=== PATIENT | female | born 1960 | race Caucasian/White ===

== ENCOUNTER → 2017-08-21 08:30 | Outpatient (CLI) | payer OTHER, SELFPAY ==
--- NOTE | 2017-08-21 08:30 | DT_ITS ---
This patient was seen during an EMR downtime August 21, 2017 - August 28, 2017. This patient may have a combination of paper and electronic documentation or all paper documentation. All documentation is viewable within the e-chart portion of [email or web address] for each patient visit.
--- NOTE | 2017-08-21 08:40 | RAD_ITS ---
STUDY: AIR-CONTRAST ESOPHAGRAM STUDY REASON FOR EXAM: Female, 56 years old. DYSPHAGIA,COUGH RADIATION DOSAGE (If Supplied By Facility): CTDIvol = ( ) mGy, DLP = ( ) mGycm FLUOROSCOPY TIME (if supplied): (0:27) minutes/seconds, 12 images. TECHNIQUE: Barium pill swallow with sips of water is performed at the beginning of the study without difficulty. Multiple barium swallows were performed under fluoroscopic monitoring. Multiple views of the esophagus, the upper stomach were performed. COMPARISON: None. FINDINGS: The esophagus appears normal in size and shape it shows unremarkable mucosal pattern. There is no evidence of hiatal hernia or abnormal mass. RAD/Esophagus Only IMPRESSION: Unremarkable study. Electronically Signed: Janis Gonzalez MD at 12:51 EDT Tel , Service support ,
== END ==
PROVIDERS: Family Provider Family Medicine; PCP Family Medicine; Visit Provider Family Medicine
DX: R13.10 Dysphagia, unspecified (principal)
CPT/HCPCS: 74220

== ENCOUNTER → 2018-01-05 10:55 | Outpatient (CLI) | payer OTHER, SELFPAY ==
[2018-01-05 11:28] LABS: Pathologist Comment/Body Fluid May follow
[2018-01-05 11:44] LABS: Body Fluid Mononuclear WBC # 0.387 10^3/uL; Body Fluid Mononuclear WBC % 38.5 %; Body Fluid Polynuclear WBC # 0.618 10^3/uL; Body Fluid Polynuclear WBC % 61.5 %; White Blood Count/Body Fluid 1.005 10^3/uL
[2018-01-05 12:03] LABS: Appearance/Body Fluid SL CLDY; Auto B Fluid Analyzer BKGD Ct COUNTS W/IN LIMITS (W/IN LIMITS); Color/Body Fluid YELLOW; Source- Body Fluid OTHER; Source- Body Fluid SYNOVIAL
[2018-01-05 12:35] LABS: Lymphocytes 23 %; Monocytes 10 %; Neutrophil (Segs) 64 %; Other Cell Type/BF 3 %
[2018-01-05 12:36] LABS: Body Fluid QC Type(s) BF4Q,BF5Q
[2018-01-08 11:48] LABS: Pathologist Review Reviewed
== END ==
PROVIDERS: Family Provider Family Medicine; PCP Family Medicine; Referring Provider Family Medicine; Visit Provider Family Medicine
DX: M25.462 Effusion, left knee (principal)
CPT/HCPCS: 87070; 87075; 87205; 89050; 89060

== ENCOUNTER → 2018-02-06 14:04 | Outpatient (CLI) | payer OTHER, SELFPAY ==
--- NOTE | 2018-02-06 17:18 | BI_ITS ---
MAMMOGRAPHY - BILATERAL SCREENING REASON FOR EXAM: Female, 57 years old. Routine annual screening examination. PERTINENT HISTORY: Non-contributory. TECHNIQUE: Digital bilateral breast lolly (3D mammographic acquisition) in the CC and MLO projections. 2-D mediolateral oblique (MLO) and craniocaudad (CC) views of both breasts were obtained. CAD: Full Field Digital Mammography with Computer Added Detection was performed. COMPARISON: Comparison is made with prior study dated August 14, 2014 and August 13, 2013. FINDINGS: Breast Composition: There are scattered areas of fibroglandular density. There are no dominant masses or suspicious calcifications. Stable small bilateral axillary lymph nodes. No other significant abnormalities are identified. There has been no significant change since the prior study. BI/SCREENING MAMM (CAD), BILAT IMPRESSION: Stable bilateral screening mammogram. Yearly follow-up mammogram recommended. (A) ASSESSMENT CATEGORY: BIRADS Category 2: Benign. A letter regarding these results will be sent to the patient by the facility within 30 days. Approximately 10% of breast cancers are not detected by mammography. A normal mammogram should not delay biopsy of a clinically suspicious abnormality. [id number] Electronically Signed: Danilo Brooke MD at 10:18 EST Tel [phone], Service support ,
--- OUTSIDE RECORDS SUMMARY | 2018-07-23 18:22 | XMS RPT_ITS | CCD ---
:1960 External Reference #:[id number] Author Organization [employer] Care Team Providers Name Role Phone Unavailable Unavailable Unavailable Problems Category Problem Name Status Date Location Residual codes; Other specified Active 05-11-2018 - [facility] unclassified health status [place] ([id number]) Results Result Name Value Range Unit Interpretation Flag Date Location progress on 2018-05-11 Protein mass conc HNO ID: [id number] Normal 05-11-2018 [facility] Author: Raúl Rodriguez (Rt) ([id number]) Service: (none) Author Type: Uncrater Type: Progress Notes Filed: 05/11/2018 2:05 PM Note Text: Radiology Service Progress Note PATIENT NAME: Evette Mclean DATE OF SERVICE: May 11, 2018 TIME: 2:04 PM PATIENT IDENTITY VERIFICATION COMPLETED USING TWO (2) METHODS: Patient confirmed name verbally and Date of . PATIENT GENDER DATA: Female. status: : No status: NO. PATIENT RELEVANT IMPLANT DATA REVIEWED: Yes RADIOLOGY DEPARTMENT: MR; Exam(s) Completed: Spine: Lumbar spine PERIPHERAL IV DATA: Not applicable SIGNED BY: RT Jennifer May 11, 2018 2:04 PM mri lumbar spine wo ivcon on 2018-05-11 MRI LUMBAR * * *Final Report* * * Normal 05-11-2018 [facility] SPINE WO IVCON DATE OF EXAM: May 11 2018 2:23PM [place] ([id number]) WRM [id number] - MRI LUMBAR SPINE WO IVCON / PROCEDURE REASON: lumbar with out * * * * Physician Interpretation * * * * EXAMINATION: MRI LUMBAR SPINE WO IVCON CLINICAL HISTORY: Low back pain radiating into right lower extremity. TECHNIQUE: Routine lumbosacral spine MR protocol without gadolinium. MQ: [id number] COMPARISON: None. RESULT: Counting reference: Lumbosacral junction. For the purposes of this report, L4-5 is considered the level of the iliac crest and assume there are 5 lumbar-type vertebrae. Anatomic variant: None. Alignment: Slight lumbar levocurvature centered at L4. Mild intervertebral disc space narrowing at L1-2, L2-3 and L3-4. Bone marrow signal/fracture: No evidence of pathologic marrow infiltration. No evidence of prior fracture. Conus: The conus terminates at L1 and is within normal limits of signal intensity and morphology. Normal course and caliber of the descending cauda equina nerve roots. Paraspinal soft tissues: Paraspinal soft tissues are within normal limits. T11-T12: Canal and foramina are patent. T12-L1: Diffuse disc bulging without cord contact. Patent foramina. L1-L2: Diffuse disc bulging with superimposed tiny left paracentral disc protrusion; patent canal and foramina. L2-L3: Annular bulging, mild facet arthropathy and edematous hypertrophy without significant canal or foraminal stenosis. L3-L4: Diffuse disc bulging and mild facet and ligamentous hypertrophy without significant canal or foraminal stenosis. L4-L5: Diffuse disc bulging and mild facet and ligamentous hypertrophy without significant canal or foraminal stenosis. L5-S1: Canal and foramina are patent Sacrum and iliac wings: The visualized sacrum and iliac wings are within normal limits. IMPRESSION: Minimal lumbar spondylosis without significant canal or foraminal stenosis. Anatomic Thoracic/Lumbar Variant: None. L4-5 is considered the level of the iliac crest and assume there are 5 lumbar-type vertebrae. [facility] Services Assistant: [facility] Transcribe Date/Time: May 11 2018 2:48P Dictated by : GA ABBASI MD This examination was interpreted and the report reviewed and electronically signed by: GA ABBASI MD on May 11 2018 2:53PM EST [id number] Encounters Date Type Reason Provider Location 07-02-2018 Patient encounter [facility] Facility:[facility] procedure [facility] 07-02-2018 Patient encounter Facility:[id number] procedure 05-11-2018 - Patient encounter [facility] 05-28-2018 procedure [place] ([id number]) Payers Payer Name Policy Number Location [facility] ([id number]) [facility] [id number] [facility] ([id number]) [id number] [facility] (33168) [id number] [facility] ([id number]) The following information is from the original human readable content ENCOUNTER GUARANTOR PAYER SUBSCRIBER SOURCE 2018 EVETTE GARCIA: Primary EVETTE GANNB: [place] [id number]: Insurance:[employer] [id number] () [place]: [id number] Date:Plan Name:Health ENCOUNTER GUARANTOR PAYER SUBSCRIBER SOURCE 2018 EVETTE GANNB: Primary EVETTE GANNB: [facility] [id number] Insurance:SUPERIOR [id number] [facility]el[facility]: System Repository Number: Effective () Date:2018 ()Tel: [id number] () Name:[id number] Summary Purpose DATE CREATED AUTHOR AUTHOR'S ORGANIZATION 05/28/2018 [facility] DATE CREATED AUTHOR AUTHOR'S ORGANIZATION 07/04/2018 [facility] DATE CREATED AUTHOR AUTHOR'S ORGANIZATION 07/05/2018 [facility] Family History No Family History Records Found Advance Directives No Advanced Directives Records Found Additional Source Comments FOR RECORDS PERTAINING TO PATIENTS WHO ARE OR HAVE BEEN ENROLLED IN A CHEMICAL DEPENDENCY/SUBSTANCE ABUSE PROGRAM, SOME INFORMATION MAY BE OMITTED. This clinical summary was aggregated from multiple sources. Caution should be exercised in using it in the provision of clinical care. This summary normalizes information from multiple sources, and as a consequence, information in this document may materially changethe coding, format and clinical context of patient data. In addition, data may be omittedin some cases. CLINICAL DECISIONS SHOULD BE BASED ON THE PRIMARY CLINICAL RECORDS. [facility] provides no warranty or guarantee of the accuracy or completeness of information in this document. UNRECOGNIZED CONTENT PROVIDED BELOW FOR UNRECOGNIZED SECTION INFORMATION SOURCE DATE CREATED AUTHOR AUTHOR'S ORGANIZATION 07/05/2018 [facility] DATE CREATED AUTHOR AUTHOR'S ORGANIZATION 07/04/2018 [facility] DATE CREATED AUTHOR AUTHOR'S ORGANIZATION 05/28/2018 [facility]
== END ==
PROVIDERS: Family Provider Family Medicine; PCP Family Medicine; Visit Provider Obstetrics & Gynecology
DX: Z12.31 Encounter for screening mammogram for malignant neoplasm of breast (principal)
CPT/HCPCS: 77063; 77067

== ENCOUNTER → 2018-03-30 11:03 | Outpatient (CLI) | payer OTHER, SELFPAY ==
--- NOTE | 2018-03-30 11:07 | RAD_ITS ---
STUDY: X-RAY - RIGHT HIP, AP pelvis REASON FOR EXAM: Female, 57 years old. Low back pain radiating into the right leg TECHNIQUE: 2 views of the hip. AP pelvis. COMPARISON: None. FINDINGS: There are osteoarthritic changes of the femoral head with marginal osteophyte formation. There is cortical sclerosis with subcortical cyst formation of the acetabulum. There is mild articular joint space narrowing. There is also degenerative narrowing with subchondral sclerosis and cyst formation of the left hip. Pelvic ring is intact without evidence of lytic or sclerotic bone lesion. The sacroiliac joints and pubic symphysis are normal. RAD/HIP, UNI W/ Pelvis 2-3 Views IMPRESSION: 1. Right hip osteoarthrosis. No erosive features. 2. Left hip osteoarthrosis. Electronically Signed: Lars Hernandes MD at 15:51 EST , Service support ,
--- NOTE | 2018-03-30 11:07 | RAD_ITS ---
STUDY: X-RAY - LUMBAR SPINE REASON FOR EXAM: Female, 57 years old. Lower back pain radiating to the right leg TECHNIQUE: 5 view(s) of the lumbar spine were obtained. COMPARISON: 01/09/2014 FINDINGS: Normal lumbar lordosis. There is no substantial scoliosis. There is a normal alignment of the vertebrae. There is multilevel endplate spondylosis of the lumbar vertebrae. Loss of disc space at L1-L2 and L3-L4 similar since the prior study. Moderate facet arthropathy L4-L5 and L5-S1. There is no demonstrated fracture. There is no demonstrated spondylolysis of the pars interarticulares. The soft tissue structures are unremarkable. RAD/L/S Spine Min 4 Views IMPRESSION: 1. Similar degenerative disc disease and facet arthropathy. Electronically Signed: Lars Hernandes MD at 16:03 EST , Service support ,
== END ==
PROVIDERS: Family Provider Family Medicine; PCP Family Medicine; Referring Provider Family Medicine; Visit Provider Family Medicine
DX: M25.551 Pain in right hip (principal)
CPT/HCPCS: 72110; 73502

== ENCOUNTER → 2018-04-10 13:33 | Outpatient (CLI) | payer OTHER, SELFPAY ==
--- NOTE | 2018-04-10 13:38 | VDLE_ITS ---
Reason For Study: LEG PAIN RIGHT LEFT GSV is normal. CFV is compressible, spontaneous, phasic, CFV is compressible, spontaneous, phasic, competent, and demonstrates normal competent and demonstrates normal augmentation. augmentation. FV is compressible, spontaneous, phasic, competent and demonstrates normal augmentation. POP V is compressible, spontaneous, phasic, competent and demonstrates normal augmentation. T/P Trunk is compressible. PTV is compressible. RT PerV is compressible. Hypoechoic structure noted medial/posterior calf measuring 4.4 x 2.6 cm. Extending from popliteal space to mid calf. Non-vascular. Procedure Exam performed in department. A preliminary report was called and/or faxed to Dr. Garcia. Interpretation Summary Deep veins of the right lower extremity are patent and compressible segmentally. There is no evidence of right lower extremity deep vein thrombosis. Valvular competence appears intact within the proximal deep venous system on the right . The right greater saphenous vein appears patent and compressible segmentally. A non-vascular, hypoechoic structure is noted in the right postero-medial calf, measuring 4.4 cm x 2.6 cm, and extending from the right popliteal space to the mid-calf. This may represent a ruptured popliteal cyst, a hematoma, or a seroma. Clinical correlation is advised. Ordering Physician: Tomasz Garcia Referring Physician: Tomasz Garcia Performed By: Cami Pearson RVT
--- OUTSIDE RECORDS SUMMARY | 2018-06-12 18:13 | XMS RPT_ITS ---
:1960 Author Organization [facility] Care Team Providers Name Role Phone Tomasz Garcia Attending Unavailable Tomasz Garcia Referring Unavailable Tomasz Garcia Primary Care Unavailable Tomasz Garcia Attending Unavailable Tomasz Garcia Referring Unavailable Tomasz Garcia Primary Care Unavailable Ministerio Ozuna Attending Unavailable Tomasz Garcia Primary Care Unavailable Tomasz Garcia Attending Unavailable Tomasz Garcia Referring Unavailable Tomasz Garcia Primary Care Unavailable Ministerio Ozuna Attending Unavailable Tomasz Garcia Primary Care Unavailable Tomasz Garcia Attending Unavailable Tomasz Garcia Referring Unavailable Tomasz Garcia Primary Care Unavailable PROBLEMS PROBLEMS DATE TYPE CONDITION / CODE ATTENDING STATUS SOURCE 01/05/2018 Unknown M25.462 - Jose, Active [place] Effusion, left [facility] knee / Hospital M25.462(ICD-10) Repository 09/13/2017 Unknown R13.10 - Jose, Active [place] Dysphagia, [facility] unspecified / Hospital R13.10(ICD-10) Repository PROCEDURES PROCEDURES No Procedure Records FoundRESULTS RESULTS VENOUS DUPLEX LOWER Observed: 04/11/2018 Status: F Source: [place] EXTREMITY 6:50 PM [facility] REPOSITORY [facility] Cardiovascular Services [address] [place] [address] Venous Duplex US, Unilateral 04/10/18 1341 MR#: [id number] Acct: [id number] Name: EVETTE NO Rep #: [id number] : 1960 57 From: Patrice Oliva MD Attending Dr: Tomasz Garcia MD Status: REG CLI Ordering Dr: Shawn Garcia MD Date: 04/10/18 Location: [facility] Sex: F C Admitted: Reason For Study: LEG PAIN RIGHT LEFT GSV is normal. CFV is compressible, spontaneous, phasic, CFV is compressible, spontaneous, phasic, competent, and demonstrates normal competent and demonstrates normal augmentation. augmentation. FV is compressible, spontaneous, phasic, competent and demonstrates normal augmentation. POP V is compressible, spontaneous, phasic, competent and demonstrates normal augmentation. T/P Trunk is compressible. PTV is compressible. RT PerV is compressible. Hypoechoic structure noted medial/posterior calf measuring 4.4 x 2.6 cm. Extending from popliteal space to mid calf. Non-vascular. Procedure Exam performed in department. A preliminary report was called and/or faxed to Dr. Garcia. Interpretation Summary Deep veins of the right lower extremity are patent and compressible segmentally. There is no evidence of right lower extremity deep vein thrombosis. Valvular competence appears intact within the proximal deep venous system on the right . The right greater saphenous vein appears patent and compressible segmentally. A non-vascular, hypoechoic structure is noted in the right postero-medial calf, measuring 4.4 cm x 2.6 cm, and extending from the right popliteal space to the mid-calf. This may represent a ruptured popliteal cyst, a hematoma, or a seroma. Clinical correlation is advised. Ordering Physician: Tomasz Garcia Referring Physician: Tomasz Garcia Performed By: Cami Pearson RVT 04/11/189 Date Patrice Oliva MD CC: Tomasz Garcia MD Date Dictated: 04/10/18 1341 Date Transcribed: 04/11/181848 Window Sash Installer: Signed HIP, UNI W/ PELVIS Observed: 03/30/2018 Status: F Source: [place] 2-3 VIEWS 11:08 AM [facility] REPOSITORY [facility] Imaging Services [address] [place] [id number] HIP, UNI W/ Pelvis 2-3 Views MR#: [id number] Acct: [id number] Name: EVETTE NO Rep #: [id number] : 1960 F 57 From: Lars Hernandes MD PCP: Tomasz Garcia MD Status: REG CLI Study: HIP, UNI W/ Pelvis 2-3 Views Date of Exam: 03/30/18 Exam# [id number] Ordering Dr: Shawn Garcia MD STUDY: X-RAY - RIGHT HIP, AP pelvis REASON FOR EXAM: Female, 57 years old. Low back pain radiating into the right leg TECHNIQUE: 2 views of the hip. AP pelvis. COMPARISON: None. FINDINGS: There are osteoarthritic changes of the femoral head with marginal osteophyte formation. There is cortical sclerosis with subcortical cyst formation of the acetabulum. There is mild articular joint space narrowing. There is also degenerative narrowing with subchondral sclerosis and cyst formation of the left hip. Pelvic ring is intact without evidence of lytic or sclerotic bone lesion. The sacroiliac joints and pubic symphysis are normal. RAD/HIP, UNI W/ Pelvis 2-3 Views IMPRESSION: 1. Right hip osteoarthrosis. No erosive features. 2. Left hip osteoarthrosis. Electronically Signed: Lars Hernandes MD at 15:51 EST , Service support , CC: Tomasz Garcia MD Window Sash Installer: Signed L/S SPINE MIN 4 Observed: 03/30/2018 Status: F Source: [place] VIEWS 11:08 AM [facility] REPOSITORY [facility] Imaging Services [address] [place] [address] L/S Spine Min 4 Views MR#: [id number] Acct: [id number] Name: EVETTE NO Rep #: [id number] : 1960 F 57 From: Lars Hernandes MD PCP: Tomasz Garcia MD Status: REG CLI Study: L/S Spine Min 4 Views Date of Exam: 03/30/18 Exam# [id number] Ordering Dr: Shawn Garcia MD STUDY: X-RAY - LUMBAR SPINE REASON FOR EXAM: Female, 57 years old. Lower back pain radiating to the right leg TECHNIQUE: 5 view(s) of the lumbar spine were obtained. COMPARISON: 01/09/2014 FINDINGS: Normal lumbar lordosis. There is no substantial scoliosis. There is a normal alignment of the vertebrae. There is multilevel endplate spondylosis of the lumbar vertebrae. Loss of disc space at L1-L2 and L3-L4 similar since the prior study. Moderate facet arthropathy L4-L5 and L5-S1. There is no demonstrated fracture. There is no demonstrated spondylolysis of the pars interarticulares. The soft tissue structures are unremarkable. RAD/L/S Spine Min 4 Views IMPRESSION: 1. Similar degenerative disc disease and facet arthropathy. Electronically Signed: Lars Hernandes MD at 16:03 EST , Service support , CC: Tomasz Garcia MD Window Sash Installer: Signed SCREENING MAMM (CAD), Observed: 02/06/2018 Status: F Source: [place] BIL 5:30 PM [facility] REPOSITORY [facility] Imaging Services [address] [place] [address] SCREENING MAMM (CAD), BILAT MR#: [id number] Acct: [id number] Name: EVETTE NO Rep #: [id number] : 1960 F 57 From: Danilo Brooke MD PCP: Tomasz Garcia MD Status: PRE CLI Study: SCREENING MAMM (CAD), BILAT Date of Exam: 02/06/18 Exam# [id number] Ordering Dr: Ministerio Ozuna MD MAMMOGRAPHY - BILATERAL SCREENING REASON FOR EXAM: Female, 57 years old. Routine annual screening examination. PERTINENT HISTORY: Non-contributory. TECHNIQUE: Digital bilateral breast lolly (3D mammographic acquisition) in the CC and MLO projections. 2-D mediolateral oblique (MLO) and craniocaudad (CC) views of both breasts were obtained. CAD: Full Field Digital Mammography with Computer Added Detection was performed. COMPARISON: Comparison is made with prior study dated August 14, 2014 and August 13, 2013. FINDINGS: Breast Composition: There are scattered areas of fibroglandular density. There are no dominant masses or suspicious calcifications. Stable small bilateral axillary lymph nodes. No other significant abnormalities are identified. There has been no significant change since the prior study. BI/SCREENING MAMM (CAD), BILAT IMPRESSION: Stable bilateral screening mammogram. Yearly follow-up mammogram recommended. (A) ASSESSMENT CATEGORY: BIRADS Category 2: Benign. A letter regarding these results will be sent to the patient by the facility within 30 days. Approximately 10% of breast cancers are not detected by mammography. A normal mammogram should not delay biopsy of a clinically suspicious abnormality. [id number] Electronically Signed: Danilo Brooke MD at 10:18 EST Tel [phone], Service support , CC: Tomasz Garcia MD; Ministerio Ozuna MD Window Sash Installer: Signed BODY FLUID CELL Collected: 01/04/2018 Status: F Source: [place] COUNT+DIFF 5:15 PM [facility] REPOSITORY Order Comment: Specimen Source: SYNOVIAL FLUID TYPE CODE TESTS RESULT OUT OF RANGE REFERENCE UNITS LAB L200.3380 0.000-0.000 10 3/ul High BFTC# 1.020 Result Comment: This is the Total Number of Nucleated Cell Types in the Body Fluid. LAB L200.3400 10 6/ul Normal RBC/BF 0.70672 LAB L200.3500 10 3/uL Normal WBC/BF 1.005 LAB L200.3510 % Normal BF PMN WBC% 61.5 LAB L200.3515 % Normal BF MN WBC% 38.5 LAB L200.3520 10 3/uL Normal BF MN WBC# 0.387 LAB L200.3525 10 3/uL Normal BF PMN WBC# 0.618 LAB L200.4400 Normal PATH COMM/BF May follow LAB L200.3100 Normal SOURCE/BF OTHER Result Comment: SYNOVIAL FLUID. LAB L200.3200 Normal COLOR/BF YELLOW LAB L200.3300 Normal SL APPEAR/BF CLDY LAB L200.3600 % Normal PMN 64 LAB L200.3700 % Normal LYMPH 23 LAB L200.3800 % Normal MONO/BF 10 LAB L200.4100 % Normal OTHER 3 CELL/BF LAB L200.4420 Normal BFM 2ND SPEC SEE COMMENT Performed By: #### L200.0200, L200.4175 #### [facility] [address] [place], [address] CRYSTALS, BODY FLUID Collected: 01/04/2018 Status: C Source: [place] 5:15 PM [facility] REPOSITORY Order Comment: Specimen Source: SYNOVIAL FLUID TYPE CODE TESTS RESULT OUT OF RANGE REFERENCE UNITS LAB L200.4200 Normal SEE PATH REV CRYSTALS/BF LAB L200.4225 Normal SYNOVIAL SOURCE/BF LAB L200.6020 Normal PATH Reviewed REV Result Comment: Negative for malignant cells and crystals. Len Hernandez M.D. 01/08/18 AMENDED REPORT 01/08/18 1148 PATH REV previously reported as: Will follow Performed By: #### L200.0200, L200.4175 #### [facility] [address] [place], [place], [address] Observed: 01/04/2018 Status: F Source: [place] CULTURE, BODY FLUID 5:15 PM [facility] REPOSITORY List Antibiotics Last 48 Hours? UNK List Antibiotics to be Started? UNK Gram Stain Centrifuged Specimen? Culture performed on centrifuged specimen Gram Stain Rare White Blood Cells No organisms seen Body Fluid Cult NO GROWTH IN 14 DAYS Cult, Anaerobic No growth in 5 days. Performed By: #### M100.1300 #### [facility] [address] [place], [address] DOWNTIME REPORT Observed: 09/07/2017 Status: F Source: [place] 12:16 PM [facility] REPOSITORY [facility] Medical Records Department [address] [place] [address] Downtime Report MR#: [id number] Acct: [id number] Name: EVETTE NO Rep #: [id number] : 1960 56 From: Patrick Ho PCP: Tomasz Garcia MD Status: REG CLI This patient was seen during an EMR downtime August 21, 2017 - August 28, 2017. This patient may have a combination of paper and electronic documentation or all paper documentation. All documentation is viewable within the e-chart portion of [employer] for each patient visit. ESOPHAGUS ONLY Observed: 08/24/2017 Status: F Source: [place] 1:23 PM [facility] REPOSITORY [facility] Imaging Services [address] [place] [address] Esophagus Only MR#: [id number] Acct: [id number] Name: EVETTE NO Rep #: [id number] : 1960 F 56 From: Janis Gonzalez MD PCP: Tomasz Garcia MD Status: REG CLI Study: Esophagus Only Date of Exam: 08/21/17 Exam# [id number] Ordering Dr: Shawn Garcia MD STUDY: AIR-CONTRAST ESOPHAGRAM STUDY REASON FOR EXAM: Female, 56 years old. DYSPHAGIA,COUGH RADIATION DOSAGE (If Supplied By Facility): CTDIvol = ( ) mGy, DLP = ( ) mGycm FLUOROSCOPY TIME (if supplied): (0:27) minutes/seconds, 12 images. TECHNIQUE: Barium pill swallow with sips of water is performed at the beginning of the study without difficulty. Multiple barium swallows were performed under fluoroscopic monitoring. Multiple views of the esophagus, the upper stomach were performed. COMPARISON: None. FINDINGS: The esophagus appears normal in size and shape it shows unremarkable mucosal pattern. There is no evidence of hiatal hernia or abnormal mass. RAD/Esophagus Only IMPRESSION: Unremarkable study. Electronically Signed: Janis Gonzalez MD at 12:51 EDT Tel , Service support , CC: Tomasz Garcia MD Window Sash Installer: Signed ALLERGIES ALLERGIES No Allergies Records FoundENCOUNTERS ENCOUNTERS ADMIT/DISCHARGE ACCOUNT ADMITTING ENCOUNTER LOCATION SOURCE NUMBER CLASS 04/10/2018 [id number] Ambulatory [place] 8 [facility] ing:[facility] Repository 03/30/2018 [id number] Ambulatory [place] 5 [facility] ing:MTRAD Repository 02/06/2018 [id number] Ambulatory [place] 6 [facility] ing:OPBI Repository 01/05/2018 [id number] Ambulatory [place] 9 [facility] ing:LABSPEC Repository 08/21/2017 [id number] Ambulatory [place] 2 [facility] ing:RAD Repository 05/15/2017 [id number] Ambulatory [place] 5 [facility] ing:BI Repository PAYERS PAYERS ENCOUNTER GUARANTOR PAYER SUBSCRIBER SOURCE 04/10/2018 EVETTE D Primary EVETTE D [place] [id number] [place] Insurance:[facility] BATDOB: [facility] [id number] [address]Tel: (330) Number: Repository [phone] () [id number] Date:6679-15-16[id number] [place] [address]GE: 04/10/2018 Secondary NOT GIVENUNK [place] Insurance:SELF PAY [facility] Number: Effective Repository Date:2018-04-10 03/30/2018 EVETTE D Primary EVETTE D [place] [id number] [place] [facility] [id number] [id number] [place] [id number]: (330) Number: Repository [phone] () [id number] Date:3690-44-13[address], [place] [address]JQ: 03/30/2018 Secondary NOT GIVENUNK [place] Insurance:SELF PAY [facility] Number: Effective Repository Date:2018-03-30 02/06/2018 Evette D Primary Evette D [place] [id number] [place] Insurance:[place] BatesDOB: [facility] [address]Szrnue [id number] [facility] [address]Ylr: (330) Number: Repository [phone] () [id number] Date:7450-40-95DG [address] [address]TA: 02/06/2018 Secondary NOT GIVENUNK [place] Insurance:SELF PAY [facility] Number: Effective Repository Date:2017-11-28 01/05/2018 Evette D Primary Evette D [place] [id number] [place] Insurance:[employer] [place] BatesDOB: [facility] [id number] [id number] [place] [address]36[address]Tel: (330) Number: Repository [phone] () [id number] Date:1297-14-16LLMARIA [place] [address]WP: 01/05/2018 Secondary NOT GIVENUNK [place] Insurance:SELF PAY [facility] Number: Effective Repository Date:2018-01-05 08/21/2017 Evette D Primary Evette D [place] [id number] [place] Insurance:UNITED [place] BatesDOB: [facility] [id number] Hospital [address]Bdv: (330) Number: Repository [phone] () [id number] Date:5405-74-02GW [address] [address]SK: 08/21/2017 Secondary NOT GIVENUNK [place] Insurance:SELF PAY [facility] Number: Effective Repository Date:2017-08-11 05/15/2017 Evette D Primary Evette D [place] [id number] [place] Insurance:UNITED HLTH BatesDOB: [facility] [id number] Hospital [address]Ttc: (330) Number: Repository [phone] () [id number] Date:0987-43-51[address], [place] [address]TR: 05/15/2017 Secondary NOT GIVENUNK [place] Insurance:SELF PAY [facility] Effective Repository Date:2017-04-19
== END ==
PROVIDERS: Family Provider Family Medicine; PCP Family Medicine; Referring Provider Family Medicine; Visit Provider Family Medicine
DX: M79.661 Pain in right lower leg (principal)
CPT/HCPCS: 93971

== ENCOUNTER → 2018-05-31 09:01 | Outpatient (CLI) | payer OTHER, SELFPAY ==
[2018-05-31 08:43] VITALS: BMI 35.6
--- NOTE | 2018-05-31 09:02 | RAD_ITS ---
STUDY: X-RAY - PELVIS AND RIGHT HIP REASON FOR EXAM: Chronic pain. TECHNIQUE: 2 views of the pelvis and hip. COMPARISON: Radiographs 03/30/2018 and 01/09/2014. FINDINGS: There is a focus of heterotopic ossification adjacent to the right greater trochanter, best identified on the frog-leg view and unchanged since the prior studies. Normal bilateral iliac wings, sacroiliac joints and visualized sacrum. Normal bilateral superior and inferior pubic rami. Normal pubic symphysis. Normal bilateral ischial tuberosities. Normal visualized femoral head. There is a bone island in the right femoral neck. Normal acetabulum. There is moderate joint space narrowing of the superior medial right hip. RAD/HIP, UNI W/ Pelvis 2-3 Views IMPRESSION: Right hip arthrosis. Heterotopic ossification adjacent to the right greater trochanter. Electronically Signed: Steven Ron MD at 14:39 EDT Tel , Service support ,
== END ==
PROVIDERS: Family Provider Family Medicine; PCP Family Medicine; Referring Provider Orthopaedic Surgery; Visit Provider Orthopaedic Surgery
DX: R52 Pain, unspecified (principal)
CPT/HCPCS: 73502

== ENCOUNTER → 2019-12-26 17:01 | Outpatient (CLI) | payer OTHER, SELFPAY ==
[2018-05-31 08:43] VITALS: BMI 35.6
[2019-12-26 17:43] LABS: Hematocrit 42.2 % (37-47); Hemoglobin 13.1 g/dL (12.0-15.0); Mean Corpuscular Hgb 28.6 pg (27.0-32.0); Mean Corpuscular Volume 92.1 fL (81-99); Mean Platelet Vol. 10.1 fl (6.2-12.0); Platelet Count 353 K/mm3 (150-450); Red Blood Count 4.58 M/mm3 (4.2-5.4); White Blood Count 7.8 K/mm3 (4.4-11.0)
[2019-12-26 18:58] LABS: ALB/GLOB Ratio 0.9 RATIO (0.9-2.4); AST(SGOT) 13 U/L (15-37); Alanine Aminotransfer ALT/SGPT 26 U/L (13-56); Albumin, Serum 3.6 g/dL (3.2-5.0); Alkaline Phosphatase 74 U/L (45-117); Anion Gap 6 (5-15); BUN 19 mg/dL (7-18); BUN/Creat Ratio 22.6 RATIO (10-20); Calcium,Total 9.1 mg/dL (8.5-10.1); Chloride 108 mmol/L (98-107); Creatinine, Serum 0.84 mg/dL (0.55-1.02); EST Glomerular Filtration Rate 74 mL/min (>60); Est Glom Filt Rate - Afr Amer 90 mL/min (>60); Globulin 3.8 g/dL (2.2-4.2); Glucose 83 mg/dL (74-106); Potassium 3.8 mmol/L (3.5-5.1); Protein, Total 7.4 g/dL (6.4-8.2); Sodium Level 142 mmol/L (136-145)
== END ==
PROVIDERS: Nurse Practitioner Family; PCP Family Medicine; Referring Provider Family Medicine; Visit Provider Family Medicine
DX: R11.2 Nausea with vomiting, unspecified (principal)
CPT/HCPCS: 36415; 80053; 85027

== ENCOUNTER → 2020-01-04 10:53 | Outpatient (CLI) | payer OTHER, SELFPAY ==
[2018-05-31 08:43] VITALS: BMI 35.6
--- NOTE | 2020-01-04 11:00 | US_ITS ---
STUDY: ABDOMINAL ULTRASOUND REASON FOR EXAM: Female, 59 years old. Right and mid abdominal pain TECHNIQUE: Transabdominal ultrasound was performed with real-time and static villagomez scale imaging. TECHNICAL QUALITY: Adequate. COMPARISON: None. FINDINGS: Liver: The liver measures 15.4 cm. There is normal echogenicity of the liver. The bile ducts are within normal limits. There is hepatic color flow. The direction of portal flow is hepatopetal. There is no demonstrated mass lesion. Portal vein measurement: Gallbladder: Normal distended gallbladder. The gallbladder wall measures 2.5 mm. There is a negative sonographic Fuentes''s sign. There is no pericholecystic fluid. There are no gallstones. Common Bile Duct (C.B.D.): The common bile duct measures 4.5 mm. Pancreas: Normal size of the head, body and tail of the pancreas. There is normal echogenicity of the pancreas. There is no demonstrated pancreatic mass or cyst. Spleen: Normal size of the spleen. The spleen measures 9.6 cm. Right Kidney: Normal size of the right kidney. The right kidney measures 9.9 x 4.6 x 4.0 cm. Normal renal cortex. The right cortex measures 1.5 cm. There is no demonstrated renal mass or cyst. There is no right hydronephrosis. Left Kidney: Normal size of the left kidney. The left kidney measures 9.9 x 5.5 x 5.2 cm. Normal renal cortex. The left cortex measures 1.5 cm. There is no demonstrated renal mass or cyst. There is no left hydronephrosis. Aorta: 1.9 cm proximally, 2.4 cm mid I.V.C.: The IVC is patent. There is no ascites. US/Abdomen Complete IMPRESSION: Normal abdominal ultrasound examination. Electronically Signed: Yue Cerrato, at 21:36 EDT Tel , Service support ,
== END ==
PROVIDERS: PCP Family Medicine; Referring Provider Nurse Practitioner Family; Visit Provider Nurse Practitioner Family
DX: R10.11 Right upper quadrant pain (principal)
CPT/HCPCS: 76700

== ENCOUNTER → 2020-01-14 08:06 | Outpatient (CLI) | payer OTHER, SELFPAY ==
[2018-05-31 08:43] VITALS: BMI 35.6
--- NOTE | 2020-01-14 08:09 | CT_ITS ---
STUDY: CT ABDOMEN AND PELVIS WITH CONTRAST REASON FOR EXAM: Female, 59 years old. RT SIDED ABD PAIN, N/V AFTER EATING, CONSTIPATION/DIARRHEA, SURG-RODRIGO/BSO, HERNIA REPAIR, PARTIAL COLECTOMY, APPY RADIATION DOSAGE (If Supplied By Facility): CTDIvol = ( 14.43 ) mGy, DLP = ( 1083.19 ) mGycm TECHNIQUE: Transaxial images were obtained from the dome of the diaphragm to the symphysis pubis with oral contrast. Oral and amp; IV Readi-CAT and amp; 100mL Isovue-300 was administered. Sagittal and coronal images were reconstructed. Individualized dose optimization techniques were used for this CT. COMPARISON: None. FINDINGS: The visualized lung bases are unremarkable. The visualized portions of the heart are within normal limits. Normal liver. The patient is status post cholecystectomy. Normal spleen. Normal pancreas. Normal bilateral adrenal glands. Normal right kidney. Normal left kidney. There is a small hiatal hernia. Normal small intestine. Normal colon. The patient is status post appendectomy. Normal abdominal aorta. Normal inferior vena cava. Normal retroperitoneum. Normal urinary bladder. There is absence of the uterus consistent with a prior hysterectomy. Normal abdominal wall. There are mild degenerative changes of the visualized lumbar spine. CT/Abdomen/Pelvis WITH Contrast IMPRESSION: Status post cholecystectomy. Electronically Signed: Danilo Brooke, at 15:17 EDT , Service support ,
== END ==
PROVIDERS: PCP Family Medicine; Referring Provider Nurse Practitioner Family; Visit Provider Nurse Practitioner Family
DX: R10.9 Unspecified abdominal pain (principal)
CPT/HCPCS: 74177; Q9967

== ENCOUNTER → 2020-12-16 12:14 | Outpatient (CLI) | payer OTHER, SELFPAY ==
[2020-12-16 15:18] LABS: Absolute Lymphocyte Count 1.51 X10^3/uL (0.83-4.51); Absolute Neutrophil Count 5.5 X10^3/uL (2.0-7.7); Basophil# 0.03 X10^3/uL; Basophil% 0.4 % (0-1); Eosinophil# 0.03 X10^3/uL; Eosinophils% 0.4 % (0-5); Hematocrit 44.7 % (37-47); Hemoglobin 14.1 g/dL (12.0-15.0); Lymphocyte # 1.51 X10^3/ul (0.83-4.51); Lymphocyte % 19.3 % (19-41); Mean Corp Hgb Conc 31.5 g/dL (32-36); Mean Corpuscular Hgb 28.9 pg (27.0-32.0); Mean Corpuscular Volume 91.6 fL (81-99); Mean Platelet Vol. 10.4 fl (6.2-12.0); Monocyte# 0.69 X10^3/uL; Monocyte% 8.8 % (0-10); NRBC Flagged by Analyzer 0 % (0-5); Neutrophil # 5.53 X10^3/uL (2.7-7.7); Neutrophil % 70.7 % (47-70); Platelet Count 395 K/mm3 (150-450); RBC Distribution Width CV 13.1 % (11.6-14.6); RBC Distribution Width SD 44.3 fl (35.1-43.9); Red Blood Count 4.88 M/mm3 (4.2-5.4); White Blood Count 7.8 K/mm3 (4.4-11.0)
[2020-12-16 15:58] LABS: ALB/GLOB Ratio 0.8 RATIO (0.9-2.4); AST(SGOT) 16 U/L (15-37); Alanine Aminotransfer ALT/SGPT 31 U/L (13-56); Albumin, Serum 3.4 g/dL (3.2-5.0); Alkaline Phosphatase 85 U/L (45-117); Anion Gap 6 (5-15); BUN 11 mg/dL (7-18); BUN/Creat Ratio 12.3 RATIO (10-20); Chloride 107 mmol/L (98-107); Cholesterol 169 mg/dL (200); EST Glomerular Filtration Rate 69 mL/min (>60); Est Glom Filt Rate - Afr Amer 83 mL/min (>60); Globulin 4.1 g/dL (2.2-4.2); Glucose 93 mg/dL (74-106); High Density Lipoprotein 48 mg/dL; Potassium 4.1 mmol/L (3.5-5.1); Protein, Total 7.5 g/dL (6.4-8.2); Sodium Level 141 mmol/L (136-145); Thyroid Stim Hormone (TSH) 1.43 uIU/mL (0.358-3.74); Triglycerides 106 mg/dL; Very Low Density Lipoprotein 21 mg/dL (5-40)
== END ==
PROVIDERS: PCP Family Medicine; Referring Provider Family Medicine; Visit Provider Family Medicine
DX: R63.4 Abnormal weight loss (principal); R07.9 Chest pain, unspecified
CPT/HCPCS: 36415; 80053; 80061; 84443; 85025

== ENCOUNTER → 2021-01-06 15:00 | Outpatient (CLI) | payer OTHER, SELFPAY ==
--- NOTE | 2021-01-06 15:06 | ECHOD_ITS ---
Reason For Study: CHEST PAIN Procedure This was a 2D Doppler, Color Flow transthoracic echocardiogram. Exam performed in department. Left Ventricle Normal LV size. Left ventricular systolic function is normal. The estimated ejection fraction is 60 %. Normal diastology for age. No regional wall motion abnormalities noted. Right Ventricle Normal RV size. Normal systolic function. Atria Normal left atrium. Normal right atrium. Mitral Valve Equivocal mitral valve prolapse. Trivial eccentric mitral valve insufficiency. Tricuspid Valve Normal tricuspid valve. Mild tricuspid valve insufficiency. Aortic Valve Normal aortic valve. Trisinus/trileaflet aortic valve. Pulmonic Valve Normal pulmonic valve. Great Vessels Normal aortic root. The pulmonary artery is normal size. Normal inferior vena cava. Pericardium/Pleural No pericardial effusion. MMode/2D Measurements & Calculations LVIDd: 4.8 cm IVSd: 0.68 cm Ao root diam: 3.6 cm LVIDs: 3.3 cm LVPWd: 0.84 cm RVDd: 3.3 cm FS: 31.5 % LAV(MOD-bp): 42.7 ml LVAd ap4: 26.8 cm2 LVAd ap2: 26.0 cm2 LAV(MOD-bp) Indexed: 24.6 ml/m2 LVLd ap4: 7.0 cm LVLd ap2: 7.1 cm LAV(MOD-sp2): 46.9 ml EDV(MOD-sp4): 86.4 ml EDV(MOD-sp2): 79.7 ml LAV(MOD-sp4): 38.6 ml EDV(sp4-el): 86.7 ml EDV(sp2-el): 81.3 ml LVAs ap4: 15.5 cm2 LVAs ap2: 15.6 cm2 LVLs ap4: 6.0 cm LVLs ap2: 6.0 cm ESV(MOD-sp4): 34.3 ml ESV(MOD-sp2): 32.7 ml ESV(sp4-el): 34.2 ml ESV(sp2-el): 34.5 ml EF(MOD-sp4): 60.3 % EF(MOD-sp2): 59.0 % EF(sp4-el): 60.5 % SV(MOD-sp4): 52.1 ml SV(MOD-sp2): 47.0 ml SV(sp4-el): 52.4 ml LA dimension(2D): 3.3 cm LA A4 area: 15.6 cm2 RA A4 area: 13.9 cm2 Doppler Measurements & Calculations MV E max saurav: 37.3 cm/sec Lat Peak E' Saurav: 10.3 cm/sec Med Peak E' Saurav: 7.4 cm/sec MV A max saurav: 54.2 cm/sec E/E' lat: 3.6 E/E' med: 5.1 MV E/A: 0.69 Ao V2 max: 115.3 cm/sec LV V1 max: 109.2 cm/sec TR max saurav: 230.8 cm/sec Ao max P.3 mmHg LV V1 max P.8 mmHg TR max P.3 mmHg ECHO/Echo Complete Interpretation Summary Normal LV size. Left ventricular systolic function is normal. The estimated ejection fraction is 60 %. Equivocal mitral valve prolapse. Trivial eccentric mitral valve insufficiency. Mild tricuspid valve insufficiency. Ordering Physician: Audrey Pearl Referring Physician: KAREN PINEDA Performed By: Leanna Nobles, LOVECS, RVT
== END ==
PROVIDERS: PCP Family Medicine; Referring Provider Family Medicine; Visit Provider Family Medicine
DX: R07.9 Chest pain, unspecified (principal)
CPT/HCPCS: 93306

== ENCOUNTER → 2021-01-12 17:00 | Outpatient (CLI) | payer OTHER, SELFPAY ==
--- NOTE | 2021-01-12 16:30 | BI_ITS ---
MAMMOGRAPHY - BILATERAL SCREENING REASON FOR EXAM: Female, 60 years old. Routine annual screening examination. PERTINENT HISTORY: Non-contributory. TECHNIQUE: Digital bilateral breast clarita (3D mammographic acquisition) in the CC and MLO projections. 2-D mediolateral oblique (MLO) and craniocaudad (CC) views of both breasts were obtained. CAD: Full Field Digital Mammography with Computer Added Detection was performed. COMPARISON: Comparison is made with prior study dated 02/06/2018 and 08/14/2014. FINDINGS: Breast Composition: There are scattered areas of fibroglandular density. There are no dominant masses or suspicious calcifications. No other significant abnormalities are identified. There has been no significant change since the prior study. BI/SCRN MAMM (CAD)W/CLARITA BILAT IMPRESSION: Stable bilateral screening mammogram. Yearly follow-up mammogram recommended. (A) ASSESSMENT CATEGORY: BIRADS Category 1: Negative. A letter regarding these results will be sent to the patient by the facility within 30 days. Approximately 10% of breast cancers are not detected by mammography. A normal mammogram should not delay biopsy of a clinically suspicious abnormality. [id number] Electronically Signed: Danilo Brooke MD at 12:11 EDT , Service support ,
== END ==
PROVIDERS: PCP Family Medicine; Referring Provider Family Medicine; Visit Provider Family Medicine
DX: Z12.31 Encounter for screening mammogram for malignant neoplasm of breast (principal)
CPT/HCPCS: 77063; 77067

== ENCOUNTER → 2021-01-19 18:17 | Outpatient (CLI) | payer OTHER, SELFPAY | PROVIDERS: PCP Family Medicine; Visit Provider Family Medicine | DX: Z20.822 Contact with and (suspected) exposure to COVID-19 (principal) | CPT/HCPCS: 87633; 87635; U0005; U0003 ==

== ENCOUNTER → 2021-03-05 17:38 | Outpatient (CLI) | payer OTHER, SELFPAY | PROVIDERS: PCP Family Medicine; Visit Provider Family Medicine | DX: Z20.822 Contact with and (suspected) exposure to COVID-19 (principal) | CPT/HCPCS: 87633; 87635; U0005; U0003 ==

== ENCOUNTER 2021-03-23 14:05 | Outpatient (CLI) | payer OTHER, SELFPAY ==
[2021-03-23 14:55] LABS: Absolute Lymphocyte Count 1.72 X10^3/uL (0.83-4.51); Basophil# 0.05 X10^3/uL; Basophil% 0.8 % (0-1); Eosinophil# 0.04 X10^3/uL; Eosinophils% 0.6 % (0-5); Hematocrit 41.6 % (37-47); Hemoglobin 13.4 g/dL (12.0-15.0); Lymphocyte # 1.72 X10^3/ul (0.83-4.51); Mean Corp Hgb Conc 32.2 g/dL (32-36); Mean Corpuscular Hgb 28.3 pg (27.0-32.0); Mean Corpuscular Volume 87.8 fL (81-99); Mean Platelet Vol. 9.8 fl (6.2-12.0); Monocyte% 9.4 % (0-10); NRBC Flagged by Analyzer 0 % (0-5); Neutrophil # 3.95 X10^3/uL (2.7-7.7); Platelet Count 331 K/mm3 (150-450); Red Blood Count 4.74 M/mm3 (4.2-5.4); White Blood Count 6.4 K/mm3 (4.4-11.0)
[2021-03-27 16:08] LABS: Aspirgillus flavus Negative (Neg:<1:1); Aspirgillus fumigatus Negative (Neg:<1:1); Aspirgillus niger Negative (Neg:<1:1)
[2021-03-27 20:07] LABS: Alternaria tenuis <0.10 kU/L (Class 0); Ash, White <0.10 kU/L (Class 0); Aspergillus fumigatus <0.10 kU/L (Class 0); Bermuda Grass <0.10 kU/L (Class 0); Birch <0.10 kU/L (Class 0); Black Walnut <0.10 kU/L (Class 0); Cat Hair / Dander,Stand <0.10 kU/L (Class 0); Cedar, Mountain <0.10 kU/L (Class 0); Cladosporium herbarum <0.10 kU/L (Class 0); Cockroach, American <0.10 kU/L (Class 0); Cottonwood <0.10 kU/L (Class 0); D farinae Mite <0.10 kU/L (Class 0); D pteronyssinus <0.10 kU/L (Class 0); Dog Epithelia <0.10 kU/L (Class 0); Elm, American White <0.10 kU/L (Class 0); Immunoglobulin E 28 IU/mL (6-495); Maple/Box Elder <0.10 kU/L (Class 0); Mulberry, White <0.10 kU/L (Class 0); Oak, White <0.10 kU/L (Class 0); Pecan <0.10 kU/L (Class 0); Penicillium Notatum <0.10 kU/L (Class 0); Pigweed, Rough <0.10 kU/L (Class 0); Ragweed, Short/Common <0.10 kU/L (Class 0); Russian Thistle <0.10 kU/L (Class 0); Sheep Sorrel <0.10 kU/L (Class 0); Sycamore, American <0.10 kU/L (Class 0); Timothy Grass <0.10 kU/L (Class 0)
[2021-03-28 07:26] LABS: Immunoglobulin E 29 IU/mL (6-495); Mouse Urine <0.10 kU/L (Class 0)
== END 2021-03-23 23:59 | disposition short-term general hospital (02) ==
LOC: PAVLAB 14:07
PROVIDERS: PCP Family Medicine; Referring Provider Internal Medicine Critical Care Medicine; Visit Provider Internal Medicine Critical Care Medicine
DX: R05.3 Chronic cough (principal)
CPT/HCPCS: 36415; 82785; 85025; 86003; 86606

== ENCOUNTER 2021-04-13 15:33 | Outpatient (CLI) | payer OTHER, SELFPAY ==
--- NOTE | 2021-04-13 15:37 | RAD_ITS ---
STUDY: X-RAY - RIGHT ANKLE REASON FOR EXAM: Female, 60 years old. Arthralgias at multiple sites. TECHNIQUE: 3 view(s) of the ankle. COMPARISON: None. FINDINGS: Osteopenia. Normal visualized distal tibia and fibula. Normal medial and lateral malleoli. Normal tibiotalar articulation and ankle mortise. Large inferior calcaneal spur. The visualized subtalar, talonavicular, calcaneocuboid and tarsal articulations are normal. Diffuse soft tissue swelling. RAD/Ankle min 3 Views IMPRESSION: Osteopenia with large inferior calcaneal spur. Diffuse soft tissue swelling. No acute abnormality or erosive changes. Electronically Signed: Sanchez Mayfield MD at 10:25 EST ,
[2021-04-13 17:57] LABS: Absolute Lymphocyte Count 1.42 X10^3/uL (0.83-4.51); Absolute Neutrophil Count 6.8 X10^3/uL (2.0-7.7); Basophil# 0.03 X10^3/uL; Basophil% 0.3 % (0-1); Eosinophil# 0.06 X10^3/uL; Eosinophils% 0.6 % (0-5); Hematocrit 38.6 % (37-47); Hemoglobin 12.2 g/dL (12.0-15.0); Lymphocyte # 1.42 X10^3/ul (0.83-4.51); Lymphocyte % 15.4 % (19-41); Mean Corp Hgb Conc 31.6 g/dL (32-36); Mean Corpuscular Hgb 28.2 pg (27.0-32.0); Mean Corpuscular Volume 89.1 fL (81-99); Mean Platelet Vol. 10.1 fl (6.2-12.0); Monocyte% 9.7 % (0-10); NRBC Flagged by Analyzer 0 % (0-5); Neutrophil # 6.79 X10^3/uL (2.7-7.7); Neutrophil % 73.6 % (47-70); Platelet Count 439 K/mm3 (150-450); RBC Distribution Width CV 12.9 % (11.6-14.6); RBC Distribution Width SD 42.6 fl (35.1-43.9); Red Blood Count 4.33 M/mm3 (4.2-5.4); Vitamin D,25 Hydroxy 44.6 ng/mL; White Blood Count 9.2 K/mm3 (4.4-11.0)
[2021-04-13 18:18] LABS: ALB/GLOB Ratio 0.7 RATIO (0.9-2.4); AST(SGOT) 19 U/L (15-37); Alanine Aminotransfer ALT/SGPT 29 U/L (13-56); Albumin, Serum 3.1 g/dL (3.2-5.0); Alkaline Phosphatase 84 U/L (45-117); Anion Gap 5 (5-15); BUN 19 mg/dL (7-18); BUN/Creat Ratio 24.1 RATIO (10-20); Calcium,Total 8.9 mg/dL (8.5-10.1); Chloride 106 mmol/L (98-107); Creatinine, Serum 0.79 mg/dL (0.55-1.02); EST Glomerular Filtration Rate 79 mL/min (>60); Est Glom Filt Rate - Afr Amer 96 mL/min (>60); Globulin 4.6 g/dL (2.2-4.2); Glucose 93 mg/dL (74-106); Potassium 4.2 mmol/L (3.5-5.1); Protein, Total 7.7 g/dL (6.4-8.2); Rheumatoid Factor < 10.0 IU/mL (<15); Sodium Level 139 mmol/L (136-145); Thyroid Stim Hormone (TSH) 2.07 uIU/mL (0.358-3.74); Uric Acid 1.7 mg/dL (2.6-6.0)
[2021-04-13 18:23] LABS: Erythrocyte Sedimentation Rate 31 mm/hr (0-30)
[2021-04-15 21:41] LABS: ANTINUCLEAR ANTIBODIES DIRECT Negative (Negative)
[2021-04-16 18:00] LABS: CCP IgG Antibodies 4 units (0-19)
== END 2021-04-13 23:59 | disposition short-term general hospital (02) ==
PROVIDERS: PCP Family Medicine; Referring Provider Family Medicine; Visit Provider Family Medicine
DX: M25.571 Pain in right ankle and joints of right foot (principal); L40.50 Arthropathic psoriasis, unspecified
CPT/HCPCS: 36415; 73610; 80053; 82306; 84443; 84550; 85025; 85652; 86038; 86140; 86200; 86431

== ENCOUNTER 2021-05-17 16:06 | Outpatient (CLI) | payer OTHER, SELFPAY ==
--- NOTE | 2021-05-17 16:10 | RAD_ITS ---
STUDY: XR Pelvis 1 or 2 Views 05/17/2021 4:29 PM REASON FOR EXAM: Female, 60 years old. PAIN TECHNIQUE: XR Pelvis 1 or 2 Views COMPARISON: None FINDINGS: There is stool in the colon. Normal visualized soft tissue structures. There are degenerative changes of the lumbar spine. Normal bilateral iliac wings, sacroiliac joints and visualized sacrum. Normal visualized bilateral superior and inferior pubic rami. Normal pubic symphysis. Normal ischial tuberosities. There are osteoarthritic changes of the right femoral head with marginal osteophyte formation. There is cortical sclerosis with sub-cortical cyst formation of the right acetabulum. There is severe articular joint space narrowing of the right hip. There are osteoarthritic changes of the left femoral head with marginal osteophyte formation. There is cortical sclerosis with sub-cortical cyst formation of the left acetabulum. There is severe articular joint space narrowing of the left hip. RAD/Pelvis 1 or 2 Views IMPRESSION: Degenerative findings of the hips. Electronically Signed: Compa Walker MD at 17:51 EST Reading Location ID and State: [facility] / [place] , Service support ,
[2021-05-17 17:33] LABS: Absolute Lymphocyte Count 0.89 X10^3/uL (0.83-4.51); Basophil# 0.02 X10^3/uL; Basophil% 0.2 % (0-1); Hematocrit 44.1 % (37-47); Lymphocyte # 0.89 X10^3/ul (0.83-4.51); Lymphocyte % 7.8 % (19-41); Mean Corp Hgb Conc 31.7 g/dL (32-36); Mean Corpuscular Hgb 28.9 pg (27.0-32.0); Mean Corpuscular Volume 91.1 fL (81-99); Mean Platelet Vol. 9.4 fl (6.2-12.0); Monocyte# 0.39 X10^3/uL; Monocyte% 3.4 % (0-10); NRBC Flagged by Analyzer 0 % (0-5); Neutrophil # 10.03 X10^3/uL (2.7-7.7); Neutrophil % 88.2 % (47-70); Platelet Count 406 K/mm3 (150-450); RBC Distribution Width CV 13.8 % (11.6-14.6); RBC Distribution Width SD 46.4 fl (35.1-43.9); Red Blood Count 4.84 M/mm3 (4.2-5.4); White Blood Count 11.4 K/mm3 (4.4-11.0)
[2021-05-17 18:18] LABS: ALB/GLOB Ratio 0.9 RATIO (0.9-2.4); AST(SGOT) 9 U/L (15-37); Alanine Aminotransfer ALT/SGPT 23 U/L (13-56); Albumin, Serum 3.7 g/dL (3.2-5.0); Alkaline Phosphatase 72 U/L (45-117); Anion Gap 6 (5-15); BUN 13 mg/dL (7-18); BUN/Creat Ratio 13.8 RATIO (10-20); Chloride 102 mmol/L (98-107); Creatinine, Serum 0.94 mg/dL (0.55-1.02); EST Glomerular Filtration Rate 65 mL/min (>60); Est Glom Filt Rate - Afr Amer 79 mL/min (>60); Globulin 3.9 g/dL (2.2-4.2); Glucose 116 mg/dL (74-106); Potassium 3.9 mmol/L (3.5-5.1); Protein, Total 7.6 g/dL (6.4-8.2); Sodium Level 137 mmol/L (136-145)
[2021-05-18 09:13] LABS: Hepatitis B Surface Antibody Non-Reactive; Hepatitis B Surface Antigen Non-Reactive (Nonreactive); Hepatitis C Antibody Non-Reactive (Nonreactive)
[2021-05-20 00:06] LABS: QNTFERON TB Mitogen Value > 10.00 IU/mL (.); QNTFERON TB Nil Value 0.01 IU/mL (.); QNTFERON TB1+ Ag Value 0 IU/mL (.); QNTFERON TB2+ Ag Value 0 IU/mL (.)
[2021-05-20 18:55] LABS: QNTIFERON TB Positive Criteria Negative (Negative)
== END 2021-05-17 23:59 | disposition home or self-care (01) ==
LOC: MTLAB 16:08
PROVIDERS: PCP Family Medicine; Referring Provider Internal Medicine Rheumatology; Visit Provider Internal Medicine Rheumatology
DX: L40.59 Other psoriatic arthropathy (principal); M79.7 Fibromyalgia; L40.8 Other psoriasis; M47.897 Other spondylosis, lumbosacral region; K21.9 Gastro-esophageal reflux disease without esophagitis; R51.9 Headache, unspecified; J45.909 Unspecified asthma, uncomplicated
CPT/HCPCS: 36415; 72170; 80053; 85025; 86480; 86706; 86803; 87340

== ENCOUNTER → 2021-10-01 | Outpatient (CLI) | payer OTHER, SELFPAY ==
[2021-10-01 18:11] LABS: Absolute Lymphocyte Count 1.86 X10^3/uL (0.83-4.51); Absolute Neutrophil Count 5.8 X10^3/uL (2.0-7.7); Basophil# 0.03 X10^3/uL; Basophil% 0.4 % (0-1); Eosinophil# 0.04 X10^3/uL; Eosinophils% 0.5 % (0-5); Hematocrit 40.5 % (37-47); Hemoglobin 12.9 g/dL (12.0-15.0); Lymphocyte # 1.86 X10^3/ul (0.83-4.51); Lymphocyte % 22.3 % (19-41); Mean Corp Hgb Conc 31.9 g/dL (32-36); Mean Corpuscular Hgb 29.3 pg (27.0-32.0); Mean Corpuscular Volume 91.8 fL (81-99); Mean Platelet Vol. 10.6 fl (6.2-12.0); Monocyte# 0.61 X10^3/uL; Monocyte% 7.3 % (0-10); NRBC Flagged by Analyzer 0 % (0-5); Neutrophil # 5.77 X10^3/uL (2.7-7.7); Neutrophil % 69.1 % (47-70); Platelet Count 377 K/mm3 (150-450); RBC Distribution Width CV 12.7 % (11.6-14.6); RBC Distribution Width SD 42.9 fl (35.1-43.9); Red Blood Count 4.41 M/mm3 (4.2-5.4); White Blood Count 8.3 K/mm3 (4.4-11.0)
[2021-10-01 18:22] LABS: AST(SGOT) 19 U/L (15-37); Alanine Aminotransfer ALT/SGPT 31 U/L (13-56); Albumin, Serum 3.7 g/dL (3.2-5.0); Alkaline Phosphatase 89 U/L (45-117); Anion Gap 6 (5-15); BUN 15 mg/dL (7-18); BUN/Creat Ratio 17.5 RATIO (10-20); Calcium,Total 9.2 mg/dL (8.5-10.1); Chloride 108 mmol/L (98-107); Creatinine, Serum 0.86 mg/dL (0.55-1.02); EST Glomerular Filtration Rate 72 mL/min (>60); Est Glom Filt Rate - Afr Amer 87 mL/min (>60); Globulin 3.7 g/dL (2.2-4.2); Glucose 102 mg/dL (74-106); Potassium 3.9 mmol/L (3.5-5.1); Protein, Total 7.4 g/dL (6.4-8.2); Sodium Level 141 mmol/L (136-145)
== END | disposition home or self-care (01) ==
LOC: MTLAB 15:42
PROVIDERS: PCP Family Medicine; Referring Provider Internal Medicine Rheumatology; Visit Provider Internal Medicine Rheumatology
DX: L40.59 Other psoriatic arthropathy (principal); Z79.899 Other long term (current) drug therapy; L40.8 Other psoriasis; M47.897 Other spondylosis, lumbosacral region; K21.9 Gastro-esophageal reflux disease without esophagitis; R51.9 Headache, unspecified; J45.909 Unspecified asthma, uncomplicated
CPT/HCPCS: 36415; 80053; 85025

== ENCOUNTER → 2021-12-17 | Outpatient (CLI) | payer OTHER, SELFPAY | END | disposition home or self-care (01) | LOC: LABSPEC 17:37 | PROVIDERS: PCP Family Medicine; Visit Provider Family Medicine | DX: Z20.822 Contact with and (suspected) exposure to COVID-19 (principal) | CPT/HCPCS: 87635; U0003; U0005 ==

== ENCOUNTER → 2022-03-31 | Outpatient (CLI) | payer OTHER, SELFPAY ==
[2022-03-31 10:48] LABS: Bacteria 0 SEEN /hpf (None Seen)
[2022-03-31 11:24] LABS: Color, Urine Yellow (Yellow); Glucose, Dipstick Normal (Normal); Ketone-Dipstick Negative (Negative); Leukocyte Esterase-Dipstick 100 /ul (Negative); Nitrite-Dipstick Negative (Negative); Occult Blood-Urine 150 /ul (Negative); Protein-Dipstick Negative (Negative); Urine Bilirubin Dipstick Negative (Negative); Urine Clarity Clear (Clear); Urine Urobilinogen 1 mg/dl (Normal)
[2022-03-31 11:31] LABS: Squamous Epithelial Cells - UA 5-10 SEEN /hpf (5-10)
[2022-03-31 11:32] LABS: Red Blood Cells-Urine 5-10 SEEN /hpf (0-5); White Blood Cells 10-25 SEEN /hpf (0-5)
[2022-03-31 11:33] LABS: Mucous, Urine 2+ /hpf (<or=2+)
== END | disposition home or self-care (01) ==
LOC: LABSPEC 10:29
PROVIDERS: PCP Family Medicine; Visit Provider Family Medicine
DX: R31.29 Other microscopic hematuria (principal)
CPT/HCPCS: 81001; 87086; 87088

== ENCOUNTER → 2022-04-28 | Outpatient (CLI) | payer OTHER, SELFPAY ==
[2022-04-28 14:44] LABS: Bacteria 0 SEEN /hpf (None Seen); Mucous, Urine 0 SEEN /hpf (<or=2+); Squamous Epithelial Cells - UA 0 SEEN /hpf (5-10); White Blood Cells 0 SEEN /hpf (0-5)
[2022-04-28 18:10] LABS: Color, Urine Yellow (Yellow); Glucose, Dipstick Normal (Normal); Ketone-Dipstick Negative (Negative); Leukocyte Esterase-Dipstick Negative /ul (Negative); Nitrite-Dipstick Negative (Negative); Occult Blood-Urine 25 /ul (Negative); Protein-Dipstick Negative (Negative); Specific Gravity, Urine 1.025 (1.002-1.030); Urine Bilirubin Dipstick Negative (Negative); Urine Clarity Clear (Clear); Urine Urobilinogen Normal (Normal)
[2022-04-28 18:32] LABS: Red Blood Cells-Urine 0-5 SEEN /hpf (0-5)
== END | disposition home or self-care (01) ==
LOC: MFPLAB 14:43
PROVIDERS: PCP Family Medicine; Referring Provider Family Medicine; Visit Provider Family Medicine
DX: R31.29 Other microscopic hematuria (principal)
CPT/HCPCS: 81001

== ENCOUNTER → 2022-07-25 | Outpatient (CLI) | payer OTHER, SELFPAY ==
--- NOTE | 2022-07-25 08:53 | RAD_ITS ---
STUDY: X-RAY - ESOPHAGUS (BARIUM SWALLOW) WITH FLUOROSCOPY REASON FOR EXAM: Female, 61 years old. DYSPHAGIA 12 MM TABLET TECHNIQUE: 18 view(s) of the esophagus were obtained following swallowing of barium. FLUOROSCOPY TIME (if supplied): (1 minute and 6 seconds) minutes/seconds. 25.41 mGy COMPARISON: None. FINDINGS: There is no demonstrated esophageal foreign body. There is no demonstrated stricture or mucosal abnormality. Normal gastroesophageal junction, without a demonstrated hiatal hernia. The patient ingested a 12 mm tablet barium. There is initial trapping of the tablet at the level of the cricopharyngeus muscle. Eventually it passes through the esophagus and into the stomach. Normal visualized aortic arch and descending thoracic aorta. Normal visualized pulmonary parenchyma. Normal visualized osseous structures of the thorax. RAD/Esophagus Dual Contrast IMPRESSION: There was temporary trapping of the 12 mm tablet of barium at the level of the cricopharyngeus muscle. Electronically Signed: Danilo Brooke MD at 13:58 EDT ,
== END | disposition home or self-care (01) ==
LOC: RAD 08:44
PROVIDERS: PCP Family Medicine; Referring Provider Internal Medicine Gastroenterology; Visit Provider Internal Medicine Gastroenterology
DX: R13.10 Dysphagia, unspecified (principal)
CPT/HCPCS: 74221

== ENCOUNTER → 2023-08-10 | Outpatient (CLI) | payer OTHER, SELFPAY ==
--- NOTE | 2023-08-10 10:03 | RAD_ITS ---
STUDY: X-RAY - ABDOMEN/PELVIS REASON FOR EXAM: Female, 62 years old. Abdominal pain. TECHNIQUE: AP supine and upright views of the abdomen and pelvis on 4 images. COMPARISON: None. FINDINGS: Normal visualized lung bases. Normal bowel gas pattern with air seen to the rectum. Moderate to marked amount of feces in the colon. Intra-abdominal outlines difficult to visualize because of overlying stool and gas. Normal soft tissues. Lower lumbosacral spondylosis and bilateral total hip arthroplasties. RAD/Abd Inc Decub and/or Erect IMPRESSION: Moderate to marked amount of feces in the colon. No other abnormality identified. Electronically Signed: Sanchez Mayfield MD at 13:36 EDT ,
[2023-08-10 12:16] LABS: Absolute Lymphocyte Count 1.89 X10^3/uL (0.83-4.51); Absolute Neutrophil Count 4.6 X10^3/uL (2.0-7.7); Basophil# 0.03 X10^3/uL; Basophil% 0.4 % (0-1); Eosinophil# 0.09 X10^3/uL; Eosinophils% 1.3 % (0-5); Hematocrit 44.6 % (37-47); Hemoglobin 13.9 g/dL (12.0-15.0); Lymphocyte # 1.89 X10^3/ul (0.83-4.51); Lymphocyte % 26.3 % (19-41); Mean Corp Hgb Conc 31.2 g/dL (32-36); Mean Corpuscular Hgb 28.1 pg (27.0-32.0); Mean Corpuscular Volume 90.1 fL (81-99); Mean Platelet Vol. 10.8 fl (6.2-12.0); Monocyte# 0.54 X10^3/uL; Monocyte% 7.5 % (0-10); NRBC Flagged by Analyzer 0 % (0-5); Neutrophil % 64.1 % (47-70); Platelet Count 293 K/mm3 (150-450); RBC Distribution Width CV 12.9 % (11.6-14.6); RBC Distribution Width SD 42.3 fl (35.1-43.9); Red Blood Count 4.95 M/mm3 (4.2-5.4); White Blood Count 7.2 K/mm3 (4.4-11.0)
[2023-08-10 12:35] LABS: Erythrocyte Sedimentation Rate 13 mm/hr (0-30)
[2023-08-10 12:45] LABS: ALB/GLOB Ratio 0.9 RATIO (0.9-2.4); AST(SGOT) 13 U/L (15-37); Alanine Aminotransfer ALT/SGPT 20 U/L (13-56); Albumin, Serum 3.3 g/dL (3.2-5.0); Alkaline Phosphatase 77 U/L (45-117); Anion Gap 6 (5-15); BUN 11 mg/dL (7-18); BUN/Creat Ratio 12.5 RATIO (10-20); Calcium,Total 8.9 mg/dL (8.5-10.1); Chloride 109 mmol/L (98-107); Creatinine, Serum 0.88 mg/dL (0.55-1.02); EST Glomerular Filtration Rate 69 mL/min (>60); Est Glom Filt Rate - Afr Amer 84 mL/min (>60); Globulin 3.8 g/dL (2.2-4.2); Glucose 118 mg/dL (74-106); Potassium 3.8 mmol/L (3.5-5.1); Protein, Total 7.1 g/dL (6.4-8.2); Sodium Level 141 mmol/L (136-145); Thyroid Stim Hormone (TSH) 3.45 uIU/mL (0.358-3.74)
== END | disposition home or self-care (01) ==
LOC: MTLAB 10:03
PROVIDERS: PCP Family Medicine; Referring Provider Family Medicine; Visit Provider Family Medicine
DX: R10.9 Unspecified abdominal pain (principal); K59.09 Other constipation
CPT/HCPCS: 36415; 74019; 80053; 84443; 85025; 85652

== ENCOUNTER → 2024-06-27 | Outpatient (CLI) | payer OTHER, SELFPAY ==
[2024-06-27 16:02] LABS: Hematocrit 44.7 % (37-47); Hemoglobin 14.4 g/dL (12.0-15.0); Mean Corp Hgb Conc 32.2 g/dL (32-36); Mean Corpuscular Hgb 28.9 pg (27.0-32.0); Mean Corpuscular Volume 89.8 fL (81-99); Mean Platelet Vol. 10.3 fl (6.2-12.0); Platelet Count 307 K/mm3 (150-450); RBC Distribution Width CV 13.1 % (11.6-14.6); RBC Distribution Width SD 43.3 fl (35.1-43.9); Red Blood Count 4.98 M/mm3 (4.2-5.4); White Blood Count 5.8 K/mm3 (4.4-11.0)
[2024-06-27 16:06] LABS: Erythrocyte Sedimentation Rate 17 mm/hr (0-30)
[2024-06-27 16:13] LABS: ALB/GLOB Ratio 1.3 RATIO (0.9-2.4); AST(SGOT) 19 U/L (<=31); Alanine Aminotransfer ALT/SGPT 17 U/L (<=34); Albumin, Serum 3.9 g/dL (3.4-4.8); Alkaline Phosphatase 82 U/L (35-104); Anion Gap 11 (5-15); BUN 22 mg/dL (4-19); BUN/Creat Ratio 25.6 RATIO (10-20); Calcium,Total 9.3 mg/dL (7.6-11.0); Carbon Dioxide 22.2 mmol/L (21.0-32.0); Chloride 105 mmol/L (98-108); Cholesterol 158 mg/dL (<=200); Creatinine, Serum 0.85 mg/dL (0.70-1.20); EST Glomerular Filtration Rate 78 (>60); Globulin 3.1 g/dL (2.2-4.2); Glucose 96 mg/dL (70-99); High Density Lipoprotein 49 mg/dL; Low Density Lipoprotein Calc. 95 mg/dL; Potassium 4.1 mmol/L (3.3-5.1); Sodium Level 138 mmol/L (133-145); Total Bilirubin 0.25 mg/dL (0.00-1.30); Triglycerides 70 mg/dL; Very Low Density Lipoprotein 14 mg/dL (5-40); cholesterol:hdl ratio screen 3.23
[2024-06-27 16:19] LABS: Vitamin D,25 Hydroxy 26.4 ng/mL (30-100)
[2024-07-03 19:08] LABS: Activated Protein C Resistance 2.5 ratio (2.2-3.5); Anti-Cardiolipin Ab, IgG, Qn < 9 GPL U/mL (0-14); Anti-Cardiolipin Ab, IgM, Qn 15 MPL U/mL (0-12); Antithrombin 3 Function 124 % (75-135); Beta-2-Glycoprotein I IgG <9 (0-20); Beta-2-Glycoprotein I IgM <9 (0-32); Dilute Russell Viper Venom 43.5 sec (0.0-47.0); Homocyst(e)ine 12.5 umol/L (0.0-17.2); Interpretation Comment: (.); PTT-Lupus Anticoagulant 32.5 sec (0.0-43.5); Protein C, Functional 122 % (73-180); Protein S, Free 120 % (61-136); dPT CONFIRMATION RATIO 1.27 Ratio (0.00-1.34)
== END | disposition home or self-care (01) ==
LOC: MFPLAB 11:49
PROVIDERS: PCP Family Medicine; Referring Provider Family Medicine; Visit Provider Family Medicine
DX: Z13.220 Encounter for screening for lipoid disorders (principal); L40.50 Arthropathic psoriasis, unspecified; I82.409 Acute embolism and thrombosis of unspecified deep veins of unspecified lower extremity
CPT/HCPCS: 36415; 80053; 80061; 81240; 81241; 82306; 83090; 84443; 85027; 85300; 85303; 85307; 85420; 85613; 85652; 85705; 85732

== ENCOUNTER → 2025-03-05 | Outpatient (CLI) | payer BC, SELFPAY ==
--- NOTE | 2025-03-05 13:56 | RAD_ITS ---
PROCEDURE: CERV SPINE 4 OR 5 VIEWS 03/05/2025 REASON FOR EXAM: RIGHT SIDE OF NECK, UPPER CHEST AND RIGHT CLAVICLE PAIN TECHNIQUE: Procedure Code: RADSPC Modality: DX Procedure: CERV SPINE 4 OR 5 VIEWS FINDINGS: No evidence acute fracture or dislocation. Moderate degenerative changes of the midcervical spine. Straightening of the normal cervical lordosis. Vertebral body heights are maintained. RAD/Cerv Spine 4 or 5 Views IMPRESSION: Spondylosis. Reading Location: [facility]
== END | disposition home or self-care (01) ==
LOC: MTRAD 13:55
PROVIDERS: PCP Family Medicine; Referring Provider Family Medicine; Visit Provider Family Medicine
DX: M54.2 Cervicalgia (principal)
CPT/HCPCS: 72050